=== PATIENT | female | born 1975 | race Two or more races ===

== ENCOUNTER 2023-09-06 15:40 | Emergency (ER) | payer MEDICAID, SELFPAY ==
--- NOTE | ~2023-09-06 | US_ITS ---
EXAMINATION: US PELVIS CLINICAL INFORMATION: Heavy vaginal bleeding after Depo-Provera shot Endometrial biopsy 09/03/2023-benign COMPARISON: None available. TECHNIQUE: Ultrasound of the pelvis is performed using both transabdominal and transvaginal transducers along with Doppler. Transvaginal imaging is performed due to inadequate visualization transabdominally. FINDINGS: Uterus: The uterus is anteverted and measures 8.6 x 5.4 x 7.7 cm. The myometrium is heterogeneous. Three uterine fibroids are identified includin.3 x 3.1 x 3.2 cm subserosal fundal fibroid 4.3 x 3.8 x 3.2 cm fibroid on the right 1.7 x 1.5 x 1.3 cm fibroid in the lower uterine segment The endometrial thickness is 0.6 cm. There is a small amount of fluid within the endometrial cavity. The ovaries are not seen. US/US pelvic and transvaginal IMPRESSION: 1. Three uterine fibroids. 2. The ovaries are not seen.
[2023-09-06 15:47] VITALS: BP 157/71; PULSE 93; O2SAT 98
[2023-09-06 16:31] VITALS: BP 169/75; PULSE 92; RESP 18; TEMP 37.3; O2SAT 98; BMI 29.2
--- NOTE | 2023-09-06 16:34 | ED_ITS ---
HPI - Female Genitourinary General Chief complaint: Urogenital-Female Stated complaint: more menstrual bleeding than normal after a biopsy Time Seen by Provider: 09/06/23 22:18 Source: patient Mode of arrival: ambulatory Limitations: no limitations History of Present Illness ED Provider: Wilfrid Rodrigez PA-C HPI Narrative: 47 yo female history of dysfunctional uterine bleeding follows with OBGYN and MRs presents to the ER for evaluation of heavy vaginal bleeding that started yesterday. Patient has been dealing with intermittent bouts of heavy vaginal bleeding for the last 3 months. She reports she had the Depo-Provera shot in May, and then was placed on estrogen pills with brief improvement in the bleeding. She reports getting another Depo shot on August 19 but started bleeding on Sunday. She reports yesterday she started having heavier bleeding with cramping. Today since noon she was having even heavier bleeding, changing her pad every hour. She took ibuprofen at noon for the cramping with some improvement. MD elicited complaint: vaginal bleeding Onset (ago): day(s) Location of symptoms: vaginal Severity: severe Consistency: progressively worsening Vaginal bleeding: dark red, clots and # pads per hour (1) Exacerbating factors: none Relieving factors: medication Associated symptoms: abdominal pain and weakness Treatment prior to arrival: NSAIDs Sexual activity: Yes Patient : No Related Data Allergies Allergy/AdvReac Type Severity Reaction Status Date / Time No Known Allergies Allergy Verified 09/06/23 16:39 Review of Systems 2 Review of Systems: Yes all other systems are reviewed and are negative PMFSH Social History Social History Advance Directives: No Advance Directives Information Provided: No Do you have a plan to hurt others: No Plan Physical Exam 2 Vital Signs: Vital Signs: Last Vital Signs Temp 99.1 F 09/06/23 23:11 Pulse 90 09/06/23 23:11 Resp 19 09/06/23 23:11 BP 154/75 H 09/06/23 23:11 Pulse Ox 99 09/06/23 23:11 O2 Del Method Room Air 09/06/23 23:11 BMI result Body Mass Index 29.2 Appearance: Alert. Oriented X3. No acute distress. Head: normocephalic, atraumatic. Eyes: Pupils equal, round and reactive to light. ENT: Pharynx normal. No tonsillar swelling or exudate. Neck: Normal inspection. Neck supple. CVS: Normal heart rate and rhythm. Pulses normal. Respiratory: No respiratory distress. Breath sounds normal. Abdomen: Soft with mild suprapubic tenderness. No rebound or guarding. Normoactive bowel sounds. Pelvic exam deferred Skin: Skin warm and dry. Normal skin color. Normal skin turgor. No rashes. Extremities: No lower extremity edema. No joint swelling. Neuro/psych: Oriented X 3. No motor deficit. No sensory deficit. CN II-XII intact. Normal speech and cognition. Course Course Course Narrative: This is a Rapid Medical Examination (RME) performed by Rosalinda Hardy PA-C in triage. Full HPI, ROS, assessment and treatment plan per primary provider in the Main ED. 47 yo female here for eval of increased vaginal bleeding x1 day. reports endometrial biopsy on Sunday (4 days ago). States she was initially spotting and having lower abdominal cramping. Yesterday began bleeding heavily. Reports going through a pad an hour. She is now passing clots the size of balls. Not on a blood thinner. She has received 2 depo provera shots since may and admits to irregular periods since. recently placed on estrogen and then her OBGYN decided they wanted the endometrial bx which came back normal. denies fever/ chills. recent negative test. denies dysuria, hematuria, vaginal discharge. abd soft/ ND/NT. no cvat. Plan: labs, UA, u preg, pelvic ultrasound Medications Administered Discontinued Medications Generic Name Dose Route Start Last Admin Trade Name Tienq PRN Reason Stop Dose Admin Acetaminophen 975 mg 09/06/23 22:37 09/06/23 22:55 Acetaminophen 325 Mg Tablet PO 09/06/23 22:38 975 mg ONCE ONE Administration Ketorolac Tromethamine 30 mg 09/06/23 22:37 09/06/23 22:57 Ketorolac Tromethamine 30 Mg/Ml Vial IM 09/06/23 22:38 30 mg ONCE ONE Administration Medical Decision Making Medical Decision Making [facility] Narrative: 47-year-old female presenting to the ER for evaluation of heavy vaginal bleeding. She has been following with her OBGYN for this in [place]. She recently had endometrial biopsy on Sunday that was normal. She reports heavy bleeding started yesterday. She recently had the Depo shot at the end of July. She reports responding well to oral estrogen tablets for bleeding in the past. H&H today is normal, no anemia. Her pain is described as cramping. It improves with NSAIDs. She just had a pelvic exam with her OBGYN, she is declining 1 today. Pelvic ultrasound was performed showing 3 uterine fibroids. This is likely the etiology of her bleeding and pain. She has an appointment tomorrow morning at 11:00 with her OBGYN. Patient given IM Toradol and Tylenol here. She is stable for discharge from the emergency department with outpatient follow-up. Differential Diagnosis Differential Diagnoses: The differential diagnosis associated with the presentation includes Dysfunctional uterine bleeding, uterine fibroids, complication from endometrial biopsy, , estrogen withdrawal bleeding, perimenopause Lab Data MDM Lab Attestation statement: I reviewed the patient's lab results. 09/06/23 17:14 09/06/23 17:14 Labs: Lab Results 09/06/23 Range/Units 17:14 WBC 12.2 H (4.8-10.8) X10*3/uL RBC 4.73 (4.20-5.50) X10*6/uL Hgb 13.7 (12.0-16.0) g/dl Hct 39.7 (37.0-47.0) % MCV 83.9 (80.0-98.0) fL MCH 29.0 (27.0-33.0) pg MCHC 34.5 (31.0-35.0) g/dl RDW 13.2 (11.0-16.0) % Plt Count 436 H (160-400) X10*3/uL MPV 10.3 (9.4-12.3) fL Immature Gran % (Auto) 0.4 (0.0-0.4) % Neut % (Auto) 68.7 (45-73) % Lymph % (Auto) 22.7 (20-40) % [place] % (Auto) 6.5 (2-11) % Eos % (Auto) 1.2 (0-4) % Baso % (Auto) 0.5 (0-2) % Lymph # (Auto) 2.8 (1.2-4.9) X10*3/uL [place] # (Auto) 0.8 (0.1-1.2) X10*3/uL Eos # (Auto) 0.1 (0.0-0.4) X10*3/uL Baso # (Auto) 0.1 (0.0-0.2) X10*3/uL Abs Immat Gran (auto) 0.05 H (0.00-0.03) X10*3/uL Absolute Neuts (auto) 8.4 H (2.0-8.3) x10*3/uL Absolute Nucleated RBC 0.000 (0.0-0.012) X10*3/uL Nucleated RBC % (auto) 0.0 (0.0-0.2) /100WBC Sodium 142 (135-145) mmol/L Potassium 3.7 (3.3-5.1) mmol/L Chloride 111 H (96-108) mmol/L Carbon Dioxide 24 (22-29) mmol/L Anion Gap 11 L (12-20) BUN 13 (9-16) mg/dL Creatinine 0.85 (0.5-1.4) mg/dL Estim Creat Clear Calc 70.2 Estimated GFR > 60 Random Glucose 107 (60-115) mg/dL Calcium 9.9 (8.4-10.2) mg/dL Magnesium 2.3 (1.6-2.6) mg/dL Total Bilirubin 0.9 (0.0-1.0) mg/dL AST 12 (5-31) U/L ALT 11 (0-31) U/L Alkaline Phosphatase 60 (39-117) U/L Total Protein 7.7 (6.5-8.0) g/dL Albumin 4.2 (3.5-5.0) g/dL Lipase 38 (8-78) U/L Independent Interpretation I performed an independent interpretation of an: Ultrasound Interpretation: no IUP, +fibroids Radiology Impression Discussion of test interpretation with radiology: I have reviewed the radiologist's reading. Radiologist Impression: EXAMINATION: US PELVIS CLINICAL INFORMATION: Heavy vaginal bleeding after Depo-Provera shot Endometrial biopsy 09/03/2023-benign COMPARISON: None available. TECHNIQUE: Ultrasound of the pelvis is performed using both transabdominal and transvaginal transducers along with Doppler. Transvaginal imaging is performed due to inadequate visualization transabdominally. FINDINGS: Uterus: The uterus is anteverted and measures 8.6 x 5.4 x 7.7 cm. The myometrium is heterogeneous. Three uterine fibroids are identified includin.3 x 3.1 x 3.2 cm subserosal fundal fibroid 4.3 x 3.8 x 3.2 cm fibroid on the right 1.7 x 1.5 x 1.3 cm fibroid in the lower uterine segment The endometrial thickness is 0.6 cm. There is a small amount of fluid within the endometrial cavity. The ovaries are not seen. US/US pelvic and transvaginal IMPRESSION: 1. Three uterine fibroids. 2. The ovaries are not seen. External Record Review External record reviewed: Outpatient record Prescription Management I considered prescription management with: Pain Medication Discharge Plan Discharge Clinical Impression: DUB (dysfunctional uterine bleeding), Fibroids Patient Disposition: Home, Self-Care Instructions: Dysfunctional Uterine Bleeding (ED), Myomectomy (DC), Uterine Artery Embolization for Fibroids (DC) Additional Instructions: Your blood counts today were normal. Follow-up with your OBGYN tomorrow. Take the prescribed ibuprofen as directed. Also add Tylenol 1000 mg every 6-8 hours. Use warm compresses or heating pad to your pelvic area as needed for cramping. If you develop new or worsening symptoms call 911 or come back to the ER for further evaluation. EXAMINATION: US PELVIS CLINICAL INFORMATION: Heavy vaginal bleeding after Depo-Provera shot Endometrial biopsy 09/03/2023-benign COMPARISON: None available. TECHNIQUE: Ultrasound of the pelvis is performed using both transabdominal and transvaginal transducers along with Doppler. Transvaginal imaging is performed due to inadequate visualization transabdominally. FINDINGS: Uterus: The uterus is anteverted and measures 8.6 x 5.4 x 7.7 cm. The myometrium is heterogeneous. Three uterine fibroids are identified includin.3 x 3.1 x 3.2 cm subserosal fundal fibroid 4.3 x 3.8 x 3.2 cm fibroid on the right 1.7 x 1.5 x 1.3 cm fibroid in the lower uterine segment The endometrial thickness is 0.6 cm. There is a small amount of fluid within the endometrial cavity. The ovaries are not seen. US/US pelvic and transvaginal IMPRESSION: 1. Three uterine fibroids. 2. The ovaries are not seen. Interventions: ED Discharge Assessment Last Done: 09/06/23 23:11 Discharge Date/Time: 09/06/23 23:00 Print Language: [place]
--- NOTE | 2023-09-06 16:44 | MHC.EDTECH ---
No answer for lab work @[id number]
[2023-09-06 17:19] LABS: MANUAL DIFF FLAG NO
[2023-09-06 17:26] LABS: Basophils Absolute Auto 0.1 X10*3/uL (0.0-0.2); Basophils Percent Auto 0.5 % (0-2); Eosinophils Absolute Auto 0.1 X10*3/uL (0.0-0.4); Eosinophils Percent Auto 1.2 % (0-4); Hematocrit 39.7 % (37.0-47.0); Hemoglobin 13.7 g/dl (12.0-16.0); Imm Gran Abs Auto 0.05 X10*3/uL (0.00-0.03); Imm Gran Pct Auto 0.4 % (0.0-0.4); Lymphocytes Absolute Auto 2.8 X10*3/uL (1.2-4.9); Lymphocytes Percent Auto 22.7 % (20-40); Mean Corpuscular HGB Conc 34.5 g/dl (31.0-35.0); Mean Corpuscular Volume 83.9 fL (80.0-98.0); Mean Platelet Volume 10.3 fL (9.4-12.3); Monocytes Absolute Auto 0.8 X10*3/uL (0.1-1.2); Monocytes Percent Auto 6.5 % (2-11); Neutrophils Absolute Auto 8.4 x10*3/uL (2.0-8.3); Neutrophils Percent Auto 68.7 % (45-73); Platelet Count 436 X10*3/uL (160-400); Red Blood Count 4.73 X10*6/uL (4.20-5.50); Red Cell Distribution Width 13.2 % (11.0-16.0); White Blood Count 12.2 X10*3/uL (4.8-10.8)
[2023-09-06 17:44] LABS: Alanine Aminotransferase 11 U/L (0-31); Albumin Level 4.2 g/dL (3.5-5.0); Alkaline Phosphatase 60 U/L (39-117); Anion Gap 11 (12-20); Aspartate Amino Transferase 12 U/L (5-31); Bilirubin Total 0.9 mg/dL (0.0-1.0); Blood Urea Nitrogen 13 mg/dL (9-16); Calcium 9.9 mg/dL (8.4-10.2); Carbon Dioxide 24 mmol/L (22-29); Chloride 111 mmol/L (96-108); Creatinine Clr Calc Pharmacy 70.2; Estimated Glomerular Filt Rate > 60; Glucose Random 107 mg/dL (60-115); Lipase 38 U/L (8-78); Magnesium 2.3 mg/dL (1.6-2.6); Potassium 3.7 mmol/L (3.3-5.1); Sodium 142 mmol/L (135-145); Total Protein 7.7 g/dL (6.5-8.0)
[2023-09-06 22:18] VITALS: BP 154/75; PULSE 90; RESP 19; TEMP 37.3; O2SAT 99
[2023-09-06] MEDS: Acetaminophen 325 MG TABLET 975 MG PO (22:55)
[2023-09-06] MEDS: Ketorolac Tromethamine 30 MG/ML VIAL IM (22:57)
[2023-09-06 23:11] VITALS: BP 154/75; PULSE 90; RESP 19; TEMP 37.3; O2SAT 99
== END 2023-09-06 23:00 | disposition home or self-care (01) ==
PROVIDERS: Physician Assistant Medical; Emergency Provider Internal Medicine; PCP Internal Medicine
DX: D25.9 Leiomyoma of uterus, unspecified (principal); N92.0 Excessive and frequent menstruation with regular cycle; N93.8 Other specified abnormal uterine and vaginal bleeding; Z79.899 Other long term (current) drug therapy
CPT/HCPCS: 36415; 76830; 76856; 80053; 83690; 83735; 85025; 96372; 99283; 99284; J1885